=== PATIENT | female | born 1950 | race American Indian/Alaskan Native ===

== ENCOUNTER 2017-05-16 10:37 | Emergency (ER) | payer MEDICARE ==
[2017-05-16 13:33] LABS: Basophils % (Auto) 0.8 % (0.0-1.8); Eosinophils % (Auto) 1.8 % (0.0-4.3); Hematocrit 38.9 % (30.3-42.9); Hemoglobin 12.9 gm/dl (10.1-14.3); Mean Corpuscular HGB Conc 33 % (30-34); Mean Corpuscular Hemoglobin 30 pg (28-32); Mean Corpuscular Volume 91 fl (79-97); Platelet Count 139 K/mm3 (140-440); Red Blood Count 4.29 M/mm3 (3.65-5.03)
[2017-05-16] MEDS ORDERED: MOTRIN PO ONE (13:42)
[2017-05-16] MEDS ORDERED: DELTASONE PO ONE (13:42)
--- NOTE | 2017-05-16 13:42 | Emergency Department Report ---
- General Chief Complaint: Upper Respiratory Infection Stated Complaint: HEAD COLD/ SICK Time Seen by Provider: 05/16/17 13:09 Source: patient Mode of arrival: Ambulatory Limitations: No Limitations - History of Present Illness Initial Comments: 66-year-old female past medical history COPD hypertension arthritis PTSD depression presents with complaint of one week of slightly productive cough. Patient is awake alert and oriented 3 does not appear to be in acute distress. Patient is fully lucid and cooperative and talkative. Patient states that she has no chest pain or palpitations. Is actively smoking. Productive cough of slightly yellowish sputum. Patient lives at [facility] possible sick contacts. MD Complaint: cough, sore throat, rhinorrhea, nasal congestion Onset/Timin -: week(s) Severity: moderate Associated Symptoms: cough Treatments Prior to Arrival: none - Related Data Previous Rx's Medication Instructions Recorded Last Taken Type Albuterol Sulfate [Ventolin Hfa] 1 puff IH Q4H PRN #1 hfa.aer.ad 05/16/17 Unknown Rx Dextromethorphan/Benzocaine 1 each PO Q4H PRN #1 box 05/16/17 Unknown Rx [Cepacol Sorethroat-Cough Faith] Levofloxacin [Levaquin TAB] 500 mg PO QDAY #10 tablet 05/16/17 Unknown Rx Phenylephrine/Dm/Acetaminop/GG 10 ml PO Q6H PRN #1 liquid 05/16/17 Unknown Rx [Mucinex Hyxv-Kzp-Vaawjjoyic Lq] predniSONE [Deltasone] 40 mg PO QDAY #10 tab 05/16/17 Unknown Rx Allergies Allergy/AdvReac Type Severity Reaction Status Date / Time clindamycin Allergy Unknown Verified 05/16/17 10:43 ED Review of Systems ROS: Stated complaint: HEAD COLD/ SICK Other details as noted in HPI Constitutional: denies: chills, fever Eyes: denies: eye pain, eye discharge, vision change ENT: denies: ear pain, throat pain Respiratory: cough. denies: shortness of breath, wheezing Cardiovascular: denies: chest pain, palpitations Endocrine: no symptoms reported Gastrointestinal: denies: abdominal pain, nausea, diarrhea Genitourinary: denies: urgency, dysuria, discharge Musculoskeletal: denies: back pain, joint swelling, arthralgia Skin: denies: rash, lesions Neurological: denies: headache, weakness, paresthesias Psychiatric: denies: anxiety, depression Hematological/Lymphatic: denies: easy bleeding, easy bruising ED Past Medical Hx - Past Medical History Previous Medical History?: Yes Hx Hypertension: Yes Hx Arthritis: Yes Hx Seizures: Yes Hx Psychiatric Treatment: Yes (PTSD, major depression, SI) Hx COPD: Yes - Surgical History Past Surgical History?: No - Social History Smoking Status: Current Every Day Smoker Substance Use Type: Non Opiate Pain, Prescribed - Medications Home Medications: Home Medications Medication Instructions Recorded Confirmed Last Taken Type Albuterol Sulfate [Ventolin Hfa] 1 puff IH Q4H PRN #1 hfa.aer.ad 05/16/17 Unknown Rx Dextromethorphan/Benzocaine 1 each PO Q4H PRN #1 box 05/16/17 Unknown Rx [Cepacol Sorethroat-Cough Faith] Levofloxacin [Levaquin TAB] 500 mg PO QDAY #10 tablet 05/16/17 Unknown Rx Phenylephrine/Dm/Acetaminop/GG 10 ml PO Q6H PRN #1 liquid 05/16/17 Unknown Rx [Mucinex Dvbu-Ebg-Exbgefgtlg Lq] predniSONE [Deltasone] 40 mg PO QDAY #10 tab 05/16/17 Unknown Rx ED Physical Exam - General Limitations: No Limitations General appearance: alert, in no apparent distress - Head Head exam: Present: atraumatic, normocephalic - Eye Eye exam: Present: normal appearance, PERRL, EOMI - ENT ENT exam: Present: mucous membranes moist - Neck Neck exam: Present: normal inspection, full ROM - Respiratory Respiratory exam: Present: normal lung sounds bilaterally. Absent: respiratory distress - Cardiovascular Cardiovascular Exam: Present: regular rate, normal rhythm. Absent: systolic murmur, diastolic murmur, rubs, gallop - GI/Abdominal GI/Abdominal exam: Present: soft, normal bowel sounds - Extremities Exam Extremities exam: Present: normal inspection - Back Exam Back exam: Present: normal inspection - Neurological Exam Neurological exam: Present: alert, oriented X3 - Psychiatric Psychiatric exam: Present: normal affect, normal mood - Skin Skin exam: Present: warm, dry, intact, normal color. Absent: rash ED Course Vital Signs 05/16/17 05/16/17 05/16/17 10:44 13:49 13:50 Temperature 98.4 F Pulse Rate 100 H Pulse Rate [ 90 Anterior Bilateral Throughout] Respiratory 20 16 Rate Respiratory 18 Rate [Anterior Bilateral Throughout] Blood Pressure 108/69 O2 Sat by Pulse 98 Oximetry 05/16/17 14:07 Temperature Pulse Rate Pulse Rate [ 92 H Anterior Bilateral Throughout] Respiratory Rate Respiratory 18 Rate [Anterior Bilateral Throughout] Blood Pressure O2 Sat by Pulse Oximetry ED Medical Decision Making - Lab Data Result diagrams: 05/16/17 13:15 05/16/17 13:15 - Medical Decision Making A/P: Acute bronchitis 1- course of Levaquin as per 2- prednisone, mucinex, albuterol inhaler 3- follow up with primary care doctor 4- rapid strep and influenza negative Critical care attestation.: If time is entered above; I have spent that time in minutes in the direct care of this critically ill patient, excluding procedure time. ED Disposition Clinical Impression: Acute bronchitis Qualifiers: Bronchitis organism: unspecified organism Qualified Code(s): J20.9 - Acute bronchitis, unspecified Disposition: - TO HOME OR SELFCARE Is pt being admited?: No Does the pt Need Aspirin: No Condition: Stable Instructions: Acute Bronchitis (ED) Prescriptions: Albuterol Sulfate [Ventolin Hfa] 1 puff IH Q4H PRN #1 hfa.aer.ad PRN Reason: Wheezing Dextromethorphan/Benzocaine [Cepacol Sorethroat-Cough Faith] 1 each PO Q4H PRN #1 box PRN Reason: Sore Throat Levofloxacin [Levaquin TAB] 500 mg PO QDAY #10 tablet Phenylephrine/Dm/Acetaminop/GG [Mucinex Rulp-Zgr-Juojxyqgup Lq] 10 ml PO Q6H PRN #1 liquid PRN Reason: Cough predniSONE [Deltasone] 40 mg PO QDAY #10 tab Referrals: NAHUN BULLARD MD [Primary Care Provider] - 3-5 Days Time of Disposition: 17:07
[2017-05-16 13:43] LABS: Calcium 8.7 mg/dL (8.4-10.2); Chloride 95.7 mmol/L (98-107); Potassium 4.9 mmol/L (3.6-5.0)
[2017-05-16] MEDS ORDERED: DUONEB *Not for PRN Use IH ONE (13:43)
--- NOTE | 2017-05-16 16:52 | XRay Report ---
FINAL REPORT EXAM: XR CHEST ROUTINE 2V HISTORY: worsening cough TECHNIQUE: Two view chest PA and lateral PRIORS: None. FINDINGS: Cardiac and mediastinal contours are unremarkable. No focal pulmonary infiltrate is identified. No pleural fluid collection seen. Pulmonary vasculature is unremarkable. Focal eventration right hemidiaphragm noted. IMPRESSION: Negative two-view chest
[2017-05-16 17:22] VITALS: BP 110/70
== END 2017-05-16 17:21 | disposition home or self-care (01) ==
LOC: ED 10:37
DX: J20.9 Acute bronchitis, unspecified (principal); I10 Essential (primary) hypertension; M19.90 Unspecified osteoarthritis, unspecified site; F17.200 Nicotine dependence, unspecified, uncomplicated; J44.9 Chronic obstructive pulmonary disease, unspecified; Z88.1 Allergy status to other antibiotic agents
CPT/HCPCS: 36415; 71020; 80048; 82805; 85025; 87116; 87400; 87430; 94640; 99284; J7512

== ENCOUNTER 2017-06-04 09:52 | Inpatient (IN) | payer MEDICARE ==
[2017-06-04] MEDS ORDERED: NORCO 5/325 PO ONE (11:44)
[2017-06-04] MEDS ORDERED: ZOFRAN ODT PO ONE (11:44)
--- NOTE | 2017-06-04 12:31 | XRay Report ---
RIGHT FOOT, 3 views: History: Swelling, pain. The bony architecture is intact. Bony alignment is normal. No soft tissue abnormalities are seen. The joint spaces appear preserved. IMPRESSION: Normal right foot.
[2017-06-04] MEDS ORDERED: TYLENOL PO ONE (13:04)
[2017-06-04] MEDS ORDERED: BACTRIM DS PO ONE (13:04)
--- NOTE | 2017-06-04 13:04 | Emergency Department Report ---
ED Extremity Problem HPI - General Chief complaint: Extremity Problem,Nontraumatic Stated complaint: RIGHT FOOT PAIN Time Seen by Provider: 06/04/17 12:51 Source: patient Mode of arrival: Ambulatory Limitations: No Limitations - History of Present Illness Initial comments: 66-year-old female past medical history COPD, smoker, depression presents with complaint of 2 days of right lower extremity pain and redness anterior clements. Patient states that he has right lower extremity discomfort and redness of skin above ankle. Also states that her right calf and right lower extremity has become swollen. Patient denies any current chest pain shortness of breath fever chills nausea vomiting abdominal pain. MD Complaint: extremity pain, extremity swelling Onset/Timin -: days(s) Severity scale (0 -10): 10 - Related Data Home Medications Medication Instructions Recorded Confirmed Last Taken Quetiapine Fumarate [Seroquel] 2 tab PO QHS 06/04/17 06/04/17 Unknown Venlafaxine [Effexor] 75 mg PO BID 06/04/17 06/04/17 Unknown Allergies Allergy/AdvReac Type Severity Reaction Status Date / Time clindamycin Allergy Unknown Verified 05/16/17 10:43 ED Review of Systems ROS: Stated complaint: RIGHT FOOT PAIN Other details as noted in HPI Constitutional: denies: chills, fever Eyes: denies: eye pain, eye discharge, vision change ENT: denies: ear pain, throat pain Respiratory: denies: cough, shortness of breath, wheezing Cardiovascular: denies: chest pain, palpitations Endocrine: no symptoms reported Gastrointestinal: denies: abdominal pain, nausea, diarrhea Genitourinary: denies: urgency, dysuria, discharge Musculoskeletal: denies: back pain, joint swelling, arthralgia Skin: denies: rash, lesions Neurological: denies: headache, weakness, paresthesias Psychiatric: denies: anxiety, depression Hematological/Lymphatic: denies: easy bleeding, easy bruising ED Past Medical Hx - Past Medical History Hx Hypertension: Yes Hx Arthritis: Yes Hx Seizures: Yes Hx Psychiatric Treatment: Yes (PTSD, major depression, SI) Hx COPD: Yes - Social History Smoking Status: Current Every Day Smoker Substance Use Type: None - Medications Home Medications: Home Medications Medication Instructions Recorded Confirmed Last Taken Type Quetiapine Fumarate [Seroquel] 2 tab PO QHS 06/04/17 06/04/17 Unknown History Venlafaxine [Effexor] 75 mg PO BID 06/04/17 06/04/17 Unknown History ED Physical Exam - General Limitations: No Limitations General appearance: alert, in no apparent distress - Head Head exam: Present: atraumatic, normocephalic - Eye Eye exam: Present: normal appearance, PERRL, EOMI - ENT ENT exam: Present: mucous membranes moist - Neck Neck exam: Present: normal inspection - Respiratory Respiratory exam: Present: normal lung sounds bilaterally. Absent: respiratory distress - Cardiovascular Cardiovascular Exam: Present: regular rate, normal rhythm. Absent: systolic murmur, diastolic murmur, rubs, gallop - GI/Abdominal GI/Abdominal exam: Present: soft, normal bowel sounds - Extremities Exam Extremities exam: Present: normal inspection - Expanded Lower Extremity Exam Right Hip exam: Present: normal inspection, full ROM Upper Leg exam: Present: normal inspection, full ROM Knee exam: Present: normal inspection, full ROM Lower Leg exam: Present: tenderness, swelling (right lower extremity swelling), erythema (area of erythema greater than 10 cm above the right ankle lower anterior clements with hyperesthesia) Ankle exam: Present: normal inspection, full ROM Foot/Toe exam: Present: normal inspection, full ROM Neuro vascular tendon exam: Present: no vascular compromise (distal DP and PT pulses intact) 1 - erythema and swelling here - Back Exam Back exam: Present: normal inspection - Neurological Exam Neurological exam: Present: alert, oriented X3, CN II-XII intact, normal gait - Psychiatric Psychiatric exam: Present: normal affect, normal mood - Skin Skin exam: Present: warm, dry, intact, normal color. Absent: rash ED Course Vital Signs 06/04/17 06/04/17 06/04/17 09:57 15:00 16:07 Temperature 98.4 F 98.6 F Pulse Rate 98 H 95 H Respiratory 18 18 20 Rate Blood Pressure 119/72 Blood Pressure 135/68 [Right] O2 Sat by Pulse 98 97 Oximetry ED Medical Decision Making - Lab Data Result diagrams: 06/04/17 13:05 06/04/17 13:05 - Medical Decision Making A/P: Right lower extremity DVT, possible cellulitis 1-right lower extremity Doppler shows DVT, case discussed with Dr. Fierro ED attending and hospitalist 2-after discussing case with hospitalist will place patient empirically on Lovenox 1 mg/kg every 12 hours until bridging can be done with another anticoagulant possibly Xarelto 3-patient has small area of erythema right lower extremity possibly cellulitis will cover empirically with Bactrim 4-be admitted for right lower extremity DVT and cellulitis. I marked borders of erythema on right anterior clements Critical care attestation.: If time is entered above; I have spent that time in minutes in the direct care of this critically ill patient, excluding procedure time. ED Disposition Clinical Impression: Cellulitis of right lower extremity Right femoral vein DVT Qualifiers: Chronicity: acute Qualified Code(s): I82.411 - Acute embolism and thrombosis of right femoral vein Disposition: OP ADMIT IP TO THIS HOSP Is pt being admited?: Yes Does the pt Need Aspirin: No Condition: Stable Referrals: NAHUN BULLARD MD [Primary Care Provider] - 3-5 Days
[2017-06-04 13:19] LABS: Basophils # (Auto) 0.1 K/mm3 (0.0-0.1); Basophils % (Auto) 0.9 % (0.0-1.8); Eosinophils # (Auto) 0.1 K/mm3 (0.0-0.4); Hematocrit 35.1 % (30.3-42.9); Hemoglobin 11.7 gm/dl (10.1-14.3); Lymphocytes # (Auto) 1.1 K/mm3 (1.2-5.4); Lymphocytes % (Auto) 20.2 % (13.4-35.0); Mean Corpuscular HGB Conc 34 % (30-34); Mean Corpuscular Hemoglobin 30 pg (28-32); Mean Corpuscular Volume 90 fl (79-97); Monocytes # (Auto) 0.4 K/mm3 (0.0-0.8); Monocytes % (Auto) 7.9 % (0.0-7.3); Platelet Count 152 K/mm3 (140-440); Red Blood Count 3.89 M/mm3 (3.65-5.03); Red Cell Distribution Width 15.3 % (13.2-15.2)
[2017-06-04 13:34] LABS: BUN/Creatinine Ratio 25; Blood Urea Nitrogen 27 mg/dL (7-17); Calcium 8.9 mg/dL (8.4-10.2); Hemolysis Index 46
[2017-06-04] MEDS ORDERED: NACL 0.9% 500 ML 500 ML IV ONE (16:11)
[2017-06-04 16:17] LABS: INR 0.91 (0.87-1.13)
[2017-06-04 16:18] LABS: Partial Thromboplastin Time 27.6 Sec. (24.2-36.6)
[2017-06-04] MEDS ORDERED: LOVENOX SUB-Q SCH (22:00)
[2017-06-04] MEDS ORDERED: AMBIEN PO PRN (23:37)
[2017-06-04] MEDS ORDERED: MORPHINE IV PRN ×2 (23:37)
[2017-06-04] MEDS ORDERED: ZOFRAN IV PRN (23:37)
[2017-06-04] MEDS ORDERED: PERCOCET 5/325 PO PRN (23:37)
[2017-06-04] MEDS ORDERED: DULCOLAX PR PRN (23:37)
[2017-06-04] MEDS ORDERED: MILK OF MAGNESIA PO PRN (23:37)
[2017-06-04] MEDS ORDERED: TYLENOL PO PRN (23:37)
--- NOTE | 2017-06-04 23:37 | History and Physical Report ---
History of Present Illness Date of examination: 06/04/17 Date of admission: 06/04/17 16:08 Chief complaint: Xx RLE Swelling and pain History of present illness: History of Present Illness 66-year-old female past medical history COPD, smoker, depression presents with complaint of 2 days of right lower extremity pain and redness anterior clements. Patient states that he has right lower extremity discomfort and redness of skin above ankle. Also states that her right calf and right lower extremity has become swollen. Patient denies any current chest pain shortness of breath fever chills nausea vomiting abdominal pain - Past Medical History Hx Hypertension: Yes Hx Arthritis: Yes Hx Seizures: Yes Hx Psychiatric Treatment: Yes (PTSD, major depression, SI) Hx COPD: Yes - Social History Smoking Status: Current Every Day Smoker Substance Use Type: None - Medications Home Medications: Home Medications Medication Instructions Recorded Confirmed Last Taken Type Quetiapine Fumarate [Seroquel] 2 tab PO QHS 06/04/17 06/04/17 Unknown History Venlafaxine [Effexor] 75 mg PO BID 06/04/17 06/04/17 Unknown History Review of Systems ROS: Stated complaint: RIGHT FOOT PAIN Other details as noted in HPI Constitutional: denies: chills, fever Eyes: denies: eye pain, eye discharge, vision change ENT: denies: ear pain, throat pain Respiratory: denies: cough, shortness of breath, wheezing Cardiovascular: denies: chest pain, palpitations Endocrine: no symptoms reported Gastrointestinal: denies: abdominal pain, nausea, diarrhea Genitourinary: denies: urgency, dysuria, discharge Musculoskeletal: denies: back pain, joint swelling, arthralgia Skin: denies: rash, lesions Neurological: denies: headache, weakness, paresthesias Psychiatric: denies: anxiety, depression Hematological/Lymphatic: denies: easy bleeding, easy bruising Medications and Allergies Allergies Allergy/AdvReac Type Severity Reaction Status Date / Time clindamycin Allergy Unknown Verified 05/16/17 10:43 Home Medications Medication Instructions Recorded Confirmed Last Taken Type Quetiapine Fumarate [Seroquel] 2 tab PO QHS 06/04/17 06/04/17 Unknown History Venlafaxine [Effexor] 75 mg PO BID 06/04/17 06/04/17 Unknown History Rivaroxaban [Xarelto] 15 mg PO BIDDIAB #42 tablet 06/05/17 Unknown Rx Rivaroxaban [Xarelto] 20 mg PO QDAY #185 tab 06/05/17 Unknown Rx Active Meds: Active Medications Enoxaparin Sodium (Lovenox) 80 mg SUB-Q Q12HR NIKO Exam - Constitutional Vitals: Temp Pulse Resp BP Pulse Ox 98.6 F 95 H 20 135/68 97 06/04/17 15:00 06/04/17 15:00 06/04/17 16:07 06/04/17 15:00 06/04/17 15:00 General appearance: Present: no acute distress, well-nourished - EENT Eyes: Present: PERRL, EOM intact ENT: hearing intact, clear oral mucosa - Neck Neck: Present: supple, normal ROM - Respiratory Respiratory effort: normal Respiratory: bilateral: CTA - Cardiovascular Heart rate: 80 Rhythm: regular Heart Sounds: Present: S1 & S2. Absent: rub, click - Extremities Extremities: pulses symmetrical, No edema Peripheral Pulses: within normal limits - Abdominal General gastrointestinal: Present: soft, non-tender, non-distended, normal bowel sounds Female genitourinary: Present: normal - Integumentary Integumentary: Present: clear, warm, dry - Musculoskeletal Musculoskeletal: gait normal, strength equal bilaterally - Psychiatric Psychiatric: appropriate mood/affect, intact judgment & insight - Neurologic Neurologic: CNII-XII intact, moves all extremities, gait normal Results - Labs CBC & Chem 7: 06/05/17 06:40 06/05/17 06:40 Labs: Laboratory Last Values WBC 5.5 K/mm3 (4.5-11.0) 06/04/17 13:05 RBC 3.89 M/mm3 (3.65-5.03) 06/04/17 13:05 Hgb 11.7 gm/dl (10.1-14.3) 06/04/17 13:05 Hct 35.1 % (30.3-42.9) 06/04/17 13:05 MCV 90 fl (79-97) 06/04/17 13:05 MCH 30 pg (28-32) 06/04/17 13:05 MCHC 34 % (30-34) 06/04/17 13:05 RDW 15.3 % (13.2-15.2) H 06/04/17 13:05 Plt Count 152 K/mm3 (140-440) 06/04/17 13:05 Lymph % (Auto) 20.2 % (13.4-35.0) 06/04/17 13:05 Parke % (Auto) 7.9 % (0.0-7.3) H 06/04/17 13:05 Eos % (Auto) 2.0 % (0.0-4.3) 06/04/17 13:05 Baso % (Auto) 0.9 % (0.0-1.8) 06/04/17 13:05 Lymph # 1.1 K/mm3 (1.2-5.4) L 06/04/17 13:05 Parke # 0.4 K/mm3 (0.0-0.8) 06/04/17 13:05 Eos # 0.1 K/mm3 (0.0-0.4) 06/04/17 13:05 Baso # 0.1 K/mm3 (0.0-0.1) 06/04/17 13:05 Seg Neutrophils % 69.0 % (40.0-70.0) 06/04/17 13:05 Seg Neutrophils # 3.8 K/mm3 (1.8-7.7) 06/04/17 13:05 PT 12.7 Sec. (12.2-14.9) 06/04/17 15:30 INR 0.91 (0.87-1.13) 06/04/17 15:30 APTT 27.6 Sec. (24.2-36.6) 06/04/17 15:30 D-Dimer 1414.57 ng/mlDDU (0-234) H 06/04/17 13:05 Sodium 143 mmol/L (137-145) 06/04/17 13:05 Potassium 5.2 mmol/L (3.6-5.0) H 06/04/17 13:05 Chloride 104.7 mmol/L (98-107) 06/04/17 13:05 Carbon Dioxide 23 mmol/L (22-30) 06/04/17 13:05 Anion Gap 21 mmol/L 06/04/17 13:05 BUN 27 mg/dL (7-17) H 06/04/17 13:05 Creatinine 1.1 mg/dL (0.7-1.2) 06/04/17 13:05 Estimated GFR > 60 ml/min 06/04/17 13:05 BUN/Creatinine Ratio 25 % 06/04/17 13:05 Glucose 74 mg/dL (65-100) 06/04/17 13:05 Lactic Acid 1.30 mmol/L (0.7-2.0) 06/04/17 15:30 Calcium 8.9 mg/dL (8.4-10.2) 06/04/17 13:05 - Imaging and Cardiology EKG: report reviewed Venous US: report reviewed Assessment and Plan Advance Directives: Yes VTE prophylaxis?: Chemical Plan of care discussed with patient/family: Yes - Patient Problems (1) Right femoral vein DVT Current Visit: Yes Status: Acute Qualifiers: Chronicity: acute Qualified Code(s): I82.411 - Acute embolism and thrombosis of right femoral vein Plan to address problem: Loovenox 100 mg sq q12 and bridge over to Xarelto 15 mg po bid (2) Schizophrenia Current Visit: Yes Status: Chronic Qualifiers: Schizophrenia type: unspecified Qualified Code(s): F20.9 - Schizophrenia, unspecified Plan to address problem: Cont Quetapine and Venlafaxine (3) DVT prophylaxis Current Visit: Yes Status: Acute Plan to address problem: On Lovenox and Xarelto 15 mg po bid
[2017-06-04] MEDS: LOVENOX SUB-Q SCH (23:51)
[2017-06-05 07:11] LABS: Alanine Aminotransferase 10 units/L (7-56); Albumin 3.4 g/dL (3.9-5); BUN/Creatinine Ratio 20; Blood Urea Nitrogen 22 mg/dL (7-17); Calcium 8.6 mg/dL (8.4-10.2); Hemolysis Index 9
[2017-06-05 07:27] LABS: Basophils % (Auto) 0.6 % (0.0-1.8); Eosinophils # (Auto) 0.1 K/mm3 (0.0-0.4); Eosinophils % (Auto) 3.3 % (0.0-4.3); Hematocrit 35.4 % (30.3-42.9); Hemoglobin 11.7 gm/dl (10.1-14.3); Lymphocytes # (Auto) 1.2 K/mm3 (1.2-5.4); Lymphocytes % (Auto) 30.1 % (13.4-35.0); Mean Corpuscular HGB Conc 33 % (30-34); Mean Corpuscular Hemoglobin 30 pg (28-32); Mean Corpuscular Volume 91 fl (79-97); Monocytes # (Auto) 0.4 K/mm3 (0.0-0.8); Monocytes % (Auto) 9.5 % (0.0-7.3); Platelet Count 161 K/mm3 (140-440); Red Blood Count 3.89 M/mm3 (3.65-5.03); Red Cell Distribution Width 15.2 % (13.2-15.2)
[2017-06-05] MEDS ORDERED: XARELTO PO SCH (08:00)
[2017-06-05 08:32] VITALS: BP 147/80
[2017-06-05] MEDS: LOVENOX SUB-Q SCH (09:18)
[2017-06-05] MEDS ORDERED: EFFEXOR PO SCH (10:00)
[2017-06-05] MEDS ORDERED: PEPCID PO SCH (10:00)
--- NOTE | 2017-06-05 11:27 | Discharge Summary ---
Providers - Providers Date of Admission: 06/04/17 16:08 Date of discharge: 06/05/17 Attending physician: MELO WATSON Primary care physician: NAHUN BULLARD Hospitalization Reason for admission: dvt Condition: Stable Hospital course: 66-year-old female past medical history COPD, smoker, depression presents with complaint of 2 days of right lower extremity pain and redness anterior clements. Patient stated that she has right lower extremity discomfort and redness of skin above ankle. Also stated that her right calf and right lower extremity had become swollen. Patient denies any current chest pain shortness of breath fever chills nausea vomiting abdominal pain. Ultrasound results revealed acute DVT, right CFV. The patient was treated initially with Lovenox, then transition to xarelto. The patient was discharged home and is to follow-up with her PCP. Dedicated discharge time 32 minutes. Disposition: TO HOME OR SELFCARE Time spent for discharge: 32 - Discharge Diagnoses (1) Right femoral vein DVT Status: Acute Qualifiers: Chronicity: acute Qualified Code(s): I82.411 - Acute embolism and thrombosis of right femoral vein Core Measure Documentation - Palliative Care Palliative Care/ Comfort Measures: Not Applicable - Core Measures Any of the following diagnoses?: DVT/PE, none - VTE Discharge Requirements Deep Vein Thrombosis/Pulmonary Embolism Present on Admission: Yes Has pt received <5 days of overlap therapy or INR<2.0: Yes (on xarelto not coumadin) Anticoagulant overlap therapy prescribed at discharge: Yes Exam - Constitutional Vitals: Temp Pulse Resp BP Pulse Ox 98.2 F 81 18 147/80 98 06/05/17 08:26 06/05/17 08:26 06/05/17 08:26 06/05/17 08:26 06/05/17 08:26 General appearance: Present: no acute distress, well-nourished - EENT Eyes: Present: PERRL ENT: hearing intact, clear oral mucosa - Neck Neck: Present: supple, normal ROM - Respiratory Respiratory effort: normal Respiratory: bilateral: CTA - Cardiovascular Heart Sounds: Present: S1 & S2. Absent: rub, click - Extremities Extremities: pulses symmetrical, No edema Peripheral Pulses: within normal limits - Abdominal General gastrointestinal: Present: soft, non-tender, non-distended, normal bowel sounds Female genitourinary: Present: normal - Integumentary Integumentary: Present: clear, warm, dry - Musculoskeletal Musculoskeletal: gait normal, strength equal bilaterally - Psychiatric Psychiatric: appropriate mood/affect, intact judgment & insight - Neurologic Neurologic: CNII-XII intact, moves all extremities Plan Activity: no restrictions Weight Bearing Status: Non-Weight Bearing Diet: regular Follow up with: NAHUN BULLARD MD [Primary Care Provider] - 3-5 Days Prescriptions: Rivaroxaban [Xarelto] 15 mg PO BIDDIAB #42 tablet Rivaroxaban [Xarelto] 20 mg PO QDAY #185 tab
--- NOTE | 2017-06-06 13:50 | Vascular Lab Report ---
Right Lower Extremity Venous Duplex Study: Reason for Exam: Pain and swelling of the right lower extremity. Comments on the Right: There is acute superficial venous thrombosis of the greater saphenous vein from ankle to the groin. The proximal portion of the thrombus extends into the common femoral vein. The remaining veins visualized are freely compressible without evidence of internal echogenicity. Spontaneous and phasic flow is decreased proximally. Comments on the Left: A limited duplex study was done of the proximal veins of the left lower extremity. All veins visualized are freely compressible without evidence of internal echogenicity. Flow is spontaneous and phasic throughout. No evidence of acute or chronic thrombus is seen in any of the vessels visualized. Impression: Acute superficial venous thrombosis of the right greater saphenous vein with extension of the thrombus into the common femoral vein essentially creating a deep venous thrombosis.
== END 2017-06-05 17:15 | disposition home or self-care (01) | DRG 300 ==
LOC: ED 09:52 → 2B-ACE 16:08 → 3A 18:22
PROVIDERS: ADMIT Internal Medicine; ATTEND Hospitalist
DX: I82.411 Acute embolism and thrombosis of right femoral vein (principal); L03.115 Cellulitis of right lower limb; J44.9 Chronic obstructive pulmonary disease, unspecified; F17.210 Nicotine dependence, cigarettes, uncomplicated; I10 Essential (primary) hypertension; M19.90 Unspecified osteoarthritis, unspecified site; R56.9 Unspecified convulsions; F20.9 Schizophrenia, unspecified
CPT/HCPCS: 36415; 80048; 80053; 82140; 85025; 85379; 85610; 85730; 87040; J1650; J7040; Q0162